=== PATIENT | female | born 1940 | race Caucasian/White ===

== ENCOUNTER 2017-09-15 07:04 | Inpatient (IN) | payer MEDICARE, OTHER ==
[~2017-09-15 07:04] MED LIST: ASPIRIN 81 MG TAB; HEPARIN 5,000 UNIT/0.5 ML VIAL
[2017-09-15] MEDS: NITROGLYCERIN 2% 1 GM OINT PKT TD (07:07)
[2017-09-15 07:28] LABS: ADD MAN DIFF? NO
[2017-09-15] MEDS ORDERED: NITROGLYCERIN (SL) 0.4 MG TAB SL ×2 (07:30→09:00)
[2017-09-15] MEDS: morphine 4 MG/ML VIAL IV (07:35)
[2017-09-15] MEDS: HEPARIN 1000 UNITS/ML 10 ML INJ IV (07:35)
[2017-09-15] MEDS: ONDANSETRON 4 MG INJ IV (07:35)
[2017-09-15 07:36] LABS: WHITE BLOOD COUNT 11.2 10^3/ul (4.8-10.8)
[2017-09-15 07:36] LABS: BASOPHILS % 0.4 % (0.0-2.0); EOSINOPHILS # 0.4 10^3/ul (0.0-0.5); EOSINOPHILS % 3.1 % (0.0-7.0); HEMATOCRIT 39.2 % (37.0-47.0); LYMPHOCYTES % 26.7 % (15.0-51.0); MEAN CORPUSCULAR HGB CONC 33.2 g/dl (32.0-37.0); MEAN CORPUSCULAR VOLUME 87.5 fl (82.0-101.0); MEAN PLATELET VOLUME 9.8 fl (7.4-10.4); MONOCYTE # 0.8 10^3/ul (0.3-0.9); MONOCYTES % 7.3 % (0.0-11.0); NEUTROPHIL # 6.9 10^3/ul (1.6-7.5); NEUTROPHILS % 61.9 % (39.0-77.0); PLATELET COUNT 301 10^3/UL (140-415); RED BLOOD COUNT 4.48 10^6/ul (4.20-5.40); RED CELL DISTRIBUTION WIDTH 13.2 % (11.5-14.5)
[2017-09-15] MEDS ORDERED: IOHEXOL 350MG/ML 50 ML BTL (07:45)
[2017-09-15] MEDS ORDERED: HEPARIN 1000 UNITS/ML 10 ML INJ (07:45)
[2017-09-15] MEDS ORDERED: IODIXANOL LOCM 100 ML BTL (07:45)
[2017-09-15] MEDS ORDERED: MIDAZOLAM 1 MG/ML 2 ML INJ (07:45)
[2017-09-15] MEDS ORDERED: VERAPAMIL 5 MG INJ ×2 (07:45→08:03)
[2017-09-15] MEDS ORDERED: FENTAnyl 50 MCG/ML VIAL (07:45)
[2017-09-15] MEDS ORDERED: SOD CHLORIDE 0.9% 500 ML (07:45)
[2017-09-15] MEDS ORDERED: LIDOCAINE 1% (MDV) 20 ML INJ (07:45)
[2017-09-15] MEDS ORDERED: NITROGLYCERIN (IC) 100 MCG/ML INJ (07:46)
[2017-09-15 07:47] LABS: ANION GAP 19 (8-16); BLOOD UREA NITROGEN 19 mg/dl (7-20); CARBON DIOXIDE 24 mmol/L (21-31); CHLORIDE 107 mmol/L (97-110); CREATININE 0.86 mg/dl (0.44-1.00); GLUCOSE 301 mg/dl (70-220); POTASSIUM 4.4 mmol/L (3.5-5.1)
[2017-09-15 07:57] LABS: CALCIUM 10.8 mg/dl (8.4-10.2); SODIUM 146 mmol/L (135-144)
[2017-09-15 07:59] LABS: TROPONIN-I 0.064 ng/ml (0.00-0.12)
[2017-09-15] MEDS ORDERED: TICAGRELOR 90 MG TABLET (08:01)
[2017-09-15] MEDS ORDERED: BIVALIRUDIN 250MG /NS 50 ML 100 ML IVPB (08:01)
[2017-09-15] MEDS: BIVALIRUDIN 250 MG in SOD CHLORIDE 0.9% 500 ML IV (08:30)
[2017-09-15] MEDS ORDERED: ACETAMINOPHEN 325 MG TAB PO ×2 (08:30→09:00)
[2017-09-15] MEDS ORDERED: FUROSEMIDE 40 MG INJ (08:37)
[2017-09-15] MEDS ORDERED: ALBUTEROL 0.083% (NEB) 2.5 MG/3 ML AMP NEB (09:00)
[2017-09-15] MEDS ORDERED: ONDANSETRON 4 MG INJ IV (09:00)
[2017-09-15] MEDS ORDERED: DOCUSATE SODIUM 100 MG CAP PO (09:00)
[2017-09-15] MEDS: morphine 2 MG INJ IV ×3 (09:35→11:39)
[2017-09-15] MEDS: SOD CHLORIDE 0.9% 1,000 ML IV (09:36)
[2017-09-15] MEDS ORDERED: HYDROCODONE/APAP (5/325) TAB PO (10:00)
[2017-09-15] MEDS ORDERED: DEXTROSE 50% 50 ML SYRINGE IV ×2 (10:00)
[2017-09-15] MEDS ORDERED: GLUCOSE GEL 15 GRAM TUBE BUCCAL (10:00)
[2017-09-15] MEDS ORDERED: GLUCAGON 1 MG INJ IM (10:00)
[2017-09-15] MEDS ORDERED: GLUCOSE GEL 15 GRAM TUBE PO ×2 (10:00)
[2017-09-15] MEDS ORDERED: morphine 2 MG INJ (10:01)
[2017-09-15 10:12] LABS: CHOL/HDL RATIO 7.2 RATIO; HDL CHOLESTEROL 34 mg/dl (33-92); LDL CHOLESTEROL,CALCULATED 154 mg/dl; TRIGLYCERIDES 285 mg/dl (0-149)
[2017-09-15 10:12] LABS: CHOLESTEROL 245 mg/dl (100-200)
[2017-09-15 10:15] LABS: HEMOGLOBIN A1C 8.7 % (0-5.9)
[2017-09-15] MEDS: TICAGRELOR 90 MG TABLET PO ×2 (11:30→21:08)
[2017-09-15] MEDS: ASPIRIN (EC) 81 MG TAB PO (11:31)
[2017-09-15] MEDS: BENAZEPRIL 10 MG TAB PO (11:38)
[2017-09-15] MEDS: FAMOTIDINE 20 MG TAB PO ×2 (11:39→21:07)
[2017-09-15] MEDS: INSULIN ASPART [NOVOLOG] 3 ML PEN SC ×4 (11:52→21:35)
[2017-09-15 12:14] LABS: CREATINE KINASE 3846 IU/L (23-200)
[2017-09-15 12:16] LABS: CK INDEX 2.7
[2017-09-15] MEDS: INSULIN GLARGINE [LANtus] 3 ML PEN SC (13:55)
[2017-09-15 14:43] LABS: ADD MAN DIFF? NO
[2017-09-15 14:48] LABS: BASOPHILS % 0.3 % (0.0-2.0); EOSINOPHILS % 0.1 % (0.0-7.0); HEMATOCRIT 38.2 % (37.0-47.0); HEMOGLOBIN 12.6 g/dl (12.0-16.0); LYMPHOCYTES # 1.6 10^3/ul (0.8-2.9); LYMPHOCYTES % 11.9 % (15.0-51.0); MEAN CORPUSCULAR HEMOGLOBIN 28.6 pg (29.0-33.0); MEAN CORPUSCULAR VOLUME 86.6 fl (82.0-101.0); MONOCYTE # 0.7 10^3/ul (0.3-0.9); MONOCYTES % 4.8 % (0.0-11.0); NEUTROPHIL # 11.3 10^3/ul (1.6-7.5); NEUTROPHILS % 82.4 % (39.0-77.0); PLATELET COUNT 317 10^3/UL (140-415); RED BLOOD COUNT 4.41 10^6/ul (4.20-5.40); RED CELL DISTRIBUTION WIDTH 13.2 % (11.5-14.5)
[2017-09-15 14:48] LABS: WHITE BLOOD COUNT 13.7 10^3/ul (4.8-10.8)
[2017-09-15 15:08] LABS: ALANINE AMINOTRANSFERASE 54 IU/L (13-69); ALBUMIN 4.1 g/dl (3.3-4.9); ALBUMIN/GLOBULIN RATIO 1.13; ALKALINE PHOSPHATASE 108 IU/L (42-121); ANION GAP 20 (8-16); ASPARTATE AMINO TRANSFERASE 309 IU/L (15-46); BILIRUBIN,INDIRECT 0.2 mg/dl (0-1.1); BILIRUBIN,TOTAL 0.2 mg/dl (0.2-1.3); BLOOD UREA NITROGEN 18 mg/dl (7-20); CALCIUM 9.8 mg/dl (8.4-10.2); CARBON DIOXIDE 23 mmol/L (21-31); CHLORIDE 104 mmol/L (97-110); CREATININE 0.81 mg/dl (0.44-1.00); GLUCOSE 307 mg/dl (70-220); POTASSIUM 4.6 mmol/L (3.5-5.1); SODIUM 142 mmol/L (135-144); TOTAL PROTEIN 7.7 g/dl (6.1-8.1)
[2017-09-15 15:42] LABS: CREATINE KINASE 2910 IU/L (23-200)
[2017-09-15 19:43] LABS: CREATINE KINASE 2121 IU/L (23-200)
[2017-09-15] MEDS: ATORVASTATIN 80 MG TAB PO (21:07)
[2017-09-16 05:12] LABS: ADD MAN DIFF? NO
[2017-09-16 05:14] LABS: WHITE BLOOD COUNT 10.8 10^3/ul (4.8-10.8)
[2017-09-16 05:14] LABS: BASOPHILS % 0.3 % (0.0-2.0); EOSINOPHILS # 0.1 10^3/ul (0.0-0.5); EOSINOPHILS % 1.1 % (0.0-7.0); HEMATOCRIT 35.4 % (37.0-47.0); HEMOGLOBIN 11.7 g/dl (12.0-16.0); LYMPHOCYTES # 2.4 10^3/ul (0.8-2.9); LYMPHOCYTES % 22.6 % (15.0-51.0); MEAN CORPUSCULAR HEMOGLOBIN 28.5 pg (29.0-33.0); MEAN CORPUSCULAR HGB CONC 33.1 g/dl (32.0-37.0); MEAN CORPUSCULAR VOLUME 86.3 fl (82.0-101.0); MEAN PLATELET VOLUME 9.8 fl (7.4-10.4); MONOCYTE # 0.7 10^3/ul (0.3-0.9); MONOCYTES % 6.7 % (0.0-11.0); NEUTROPHIL # 7.4 10^3/ul (1.6-7.5); NEUTROPHILS % 68.9 % (39.0-77.0); PLATELET COUNT 292 10^3/UL (140-415); RED CELL DISTRIBUTION WIDTH 13.2 % (11.5-14.5)
[2017-09-16 05:33] LABS: CREATINE KINASE 987 IU/L (23-200)
[2017-09-16 05:41] LABS: ALANINE AMINOTRANSFERASE 53 IU/L (13-69); ALBUMIN/GLOBULIN RATIO 1.29; ALKALINE PHOSPHATASE 78 IU/L (42-121); ANION GAP 12 (8-16); ASPARTATE AMINO TRANSFERASE 182 IU/L (15-46); BILIRUBIN,INDIRECT 0.2 mg/dl (0-1.1); BILIRUBIN,TOTAL 0.2 mg/dl (0.2-1.3); BLOOD UREA NITROGEN 18 mg/dl (7-20); CALCIUM 9.2 mg/dl (8.4-10.2); CARBON DIOXIDE 30 mmol/L (21-31); CHLORIDE 104 mmol/L (97-110); CHOL/HDL RATIO 7.7 RATIO; CHOLESTEROL 209 mg/dl (100-200); CREATININE 0.75 mg/dl (0.44-1.00); GLUCOSE 248 mg/dl (70-220); HDL CHOLESTEROL 27 mg/dl (33-92); LDL CHOLESTEROL,CALCULATED 140 mg/dl; MAGNESIUM 1.4 mg/dl (1.7-2.5); POTASSIUM 4.1 mmol/L (3.5-5.1); SODIUM 142 mmol/L (135-144); TOTAL PROTEIN 7.1 g/dl (6.1-8.1); TRIGLYCERIDES 210 mg/dl (0-149)
[2017-09-16 05:44] LABS: B-TYPE NATRIURETIC PEPTIDE 2760 PG/ML (0-450)
[2017-09-16 05:46] LABS: CK INDEX 4.5
[2017-09-16 05:52] LABS: FREE T4 (FREE THYROXINE) 1.13 ng/dl (0.78-2.44)
[2017-09-16 06:05] LABS: THYROID STIMULATING HORMONE 0.662 MIU/L (0.465-4.680)
[2017-09-16] MEDS: FAMOTIDINE 20 MG TAB PO ×2 (08:23→20:40)
[2017-09-16] MEDS: BENAZEPRIL 10 MG TAB PO (08:23)
[2017-09-16] MEDS: TICAGRELOR 90 MG TABLET PO ×2 (08:26→20:41)
[2017-09-16] MEDS: INSULIN ASPART [NOVOLOG] 3 ML PEN SC ×4 (08:27→20:42)
[2017-09-16] MEDS: ASPIRIN (EC) 81 MG TAB PO (08:37)
[2017-09-16] MEDS: MAGNESIUM OXIDE 400 MG TAB PO (09:41)
[2017-09-16] MEDS: INSULIN GLARGINE [LANtus] 3 ML PEN SC (09:45)
[2017-09-16] MEDS: ATORVASTATIN 80 MG TAB PO (20:40)
[2017-09-17 05:53] LABS: ALANINE AMINOTRANSFERASE 44 IU/L (13-69); ALBUMIN 3.7 g/dl (3.3-4.9); ALBUMIN/GLOBULIN RATIO 1.19; ALKALINE PHOSPHATASE 100 IU/L (42-121); ANION GAP 14 (8-16); ASPARTATE AMINO TRANSFERASE 92 IU/L (15-46); BILIRUBIN,INDIRECT 0.2 mg/dl (0-1.1); BILIRUBIN,TOTAL 0.2 mg/dl (0.2-1.3); BLOOD UREA NITROGEN 20 mg/dl (7-20); CALCIUM 8.7 mg/dl (8.4-10.2); CARBON DIOXIDE 27 mmol/L (21-31); CHLORIDE 104 mmol/L (97-110); CREATININE 0.85 mg/dl (0.44-1.00); GLUCOSE 286 mg/dl (70-220); MAGNESIUM 1.7 mg/dl (1.7-2.5); POTASSIUM 4.4 mmol/L (3.5-5.1); SODIUM 141 mmol/L (135-144); TOTAL PROTEIN 6.8 g/dl (6.1-8.1)
[2017-09-17] MEDS: BENAZEPRIL 10 MG TAB PO (08:53)
[2017-09-17] MEDS: FAMOTIDINE 20 MG TAB PO (08:53)
[2017-09-17] MEDS: ASPIRIN (EC) 81 MG TAB PO (08:53)
[2017-09-17] MEDS: TICAGRELOR 90 MG TABLET PO (08:54)
[2017-09-17] MEDS: INSULIN GLARGINE [LANtus] 3 ML PEN SC (08:59)
[2017-09-17] MEDS ORDERED: DIGOXIN 0.125 MG TAB PO (13:00)
== END 2017-09-17 10:50 | disposition home or self-care (01) | DRG 246 ==
LOC: E/R 07:04 → CCL 07:36 → SDS 07:36 → ICU 09:06 → CCL 07:43 → ICU 07:44
PROVIDERS: Internal Medicine
PROC: 027034Z Dilation of Coronary Artery, One Artery with Drug-eluting Intraluminal Device, Percutaneous Approach (ICD-10-PCS; principal; 2017-09-15 07:30)
PROC: 02C03ZZ Extirpation of Matter from Coronary Artery, One Artery, Percutaneous Approach (ICD-10-PCS; 2017-09-15 07:30)
PROC: 4A023N7 Measurement of Cardiac Sampling and Pressure, Left Heart, Percutaneous Approach (ICD-10-PCS; 2017-09-15 07:30)
PROC: B211YZZ Fluoroscopy of Multiple Coronary Arteries using Other Contrast (ICD-10-PCS; 2017-09-15 07:30)
DX: I21.19 ST elevation (STEMI) myocardial infarction involving other coronary artery of inferior wall (principal); I50.41 Acute combined systolic (congestive) and diastolic (congestive) heart failure; I25.10 Atherosclerotic heart disease of native coronary artery without angina pectoris; I11.0 Hypertensive heart disease with heart failure; E11.65 Type 2 diabetes mellitus with hyperglycemia; E66.01 Morbid (severe) obesity due to excess calories; E78.5 Hyperlipidemia, unspecified; G47.33 Obstructive sleep apnea (adult) (pediatric); F17.200 Nicotine dependence, unspecified, uncomplicated; Z68.37 Body mass index [BMI] 37.0-37.9, adult; Z79.4 Long term (current) use of insulin
CPT/HCPCS: 36415; 71045; 80048; 80053; 80061; 82550; 82553; 82962; 83036; 83735; 83880; 84145; 84439; 84443; 84484; 85025; 87081; 93005; 93306; 93458; 94660; 96374; 96375; 99291-25

== ENCOUNTER 2017-10-20 07:57 | Day surgery (SDC) | payer MEDICARE, OTHER ==
[~2017-10-20 07:57] MED LIST changes: -ASPIRIN 81 MG TAB; -HEPARIN 5,000 UNIT/0.5 ML VIAL; +SOD CHLORIDE 0.9% 1,000 ML IV
[2017-10-20 08:55] LABS: ADD MAN DIFF? NO
[2017-10-20 08:58] LABS: BASOPHILS % 0.4 % (0.0-2.0); EOSINOPHILS # 0.2 10^3/ul (0.0-0.5); EOSINOPHILS % 1.5 % (0.0-7.0); HEMATOCRIT 34.9 % (37.0-47.0); HEMOGLOBIN 11.3 g/dl (12.0-16.0); LYMPHOCYTES # 2.2 10^3/ul (0.8-2.9); LYMPHOCYTES % 20.8 % (15.0-51.0); MEAN CORPUSCULAR HEMOGLOBIN 28.5 pg (29.0-33.0); MEAN CORPUSCULAR HGB CONC 32.4 g/dl (32.0-37.0); MEAN CORPUSCULAR VOLUME 88.1 fl (82.0-101.0); MEAN PLATELET VOLUME 9.9 fl (7.4-10.4); MONOCYTE # 0.8 10^3/ul (0.3-0.9); MONOCYTES % 7.7 % (0.0-11.0); NEUTROPHIL # 7.3 10^3/ul (1.6-7.5); PLATELET COUNT 301 10^3/UL (140-415); RED BLOOD COUNT 3.96 10^6/ul (4.20-5.40); RED CELL DISTRIBUTION WIDTH 13.2 % (11.5-14.5)
[2017-10-20 08:58] LABS: WHITE BLOOD COUNT 10.6 10^3/ul (4.8-10.8)
[2017-10-20 09:21] LABS: ALANINE AMINOTRANSFERASE 25 IU/L (13-69); ALBUMIN 3.8 g/dl (3.3-4.9); ALBUMIN/GLOBULIN RATIO 1.31; ALKALINE PHOSPHATASE 81 IU/L (42-121); ANION GAP 15 (8-16); ASPARTATE AMINO TRANSFERASE 18 IU/L (15-46); BILIRUBIN,INDIRECT 0.1 mg/dl (0-1.1); BILIRUBIN,TOTAL 0.1 mg/dl (0.2-1.3); CARBON DIOXIDE 29 mmol/L (21-31); CHLORIDE 106 mmol/L (97-110); CHOLESTEROL 122 mg/dl (100-200); CREATINE KINASE 134 IU/L (23-200); GLUCOSE 191 mg/dl (70-220); HDL CHOLESTEROL 40 mg/dl (33-92); LDL CHOLESTEROL,CALCULATED 51 mg/dl; TOTAL PROTEIN 6.7 g/dl (6.1-8.1); TRIGLYCERIDES 154 mg/dl (0-149)
[2017-10-20 09:22] LABS: BLOOD UREA NITROGEN 12 mg/dl (7-20); CALCIUM 9.2 mg/dl (8.4-10.2); CREATININE 0.78 mg/dl (0.44-1.00); POTASSIUM 4.6 mmol/L (3.5-5.1)
[2017-10-20 09:25] LABS: SODIUM 145 mmol/L (135-144)
[2017-10-20 09:30] LABS: INR 0.98; PARTIAL THROMBOPLASTIN TIME 30.4 Sec (25.0-35.0); PROTIME 13.1 Sec (11.9-14.9)
[2017-10-20 09:31] LABS: TROPONIN-I < 0.012 ng/ml (0.00-0.12)
[2017-10-20] MEDS ORDERED: FENTAnyl 50 MCG/ML VIAL (10:26)
[2017-10-20] MEDS ORDERED: MIDAZOLAM 1 MG/ML 2 ML INJ (10:26)
[2017-10-20] MEDS ORDERED: IODIXANOL LOCM 100 ML BTL (10:26)
[2017-10-20] MEDS ORDERED: LIDOCAINE 1% (MDV) 20 ML INJ (10:26)
[2017-10-20] MEDS ORDERED: NITROGLYCERIN (IC) 100 MCG/ML INJ ×2 (10:33→10:47)
[2017-10-20] MEDS ORDERED: VERAPAMIL 5 MG INJ ×2 (10:33→10:47)
[2017-10-20] MEDS ORDERED: HEPARIN 1000 UNITS/ML 10 ML INJ (10:47)
[2017-10-20] MEDS ORDERED: ASPIRIN 81 MG TAB (10:49)
[2017-10-20] MEDS ORDERED: TICAGRELOR 90 MG TABLET (10:49)
[2017-10-20] MEDS ORDERED: ACETAMINOPHEN 325 MG TAB PO (12:00)
[2017-10-20] MEDS ORDERED: morphine 2 MG INJ IV (12:00)
[2017-10-20] MEDS: SOD CHLORIDE 0.9% 1,000 ML IV (12:11)
== END 2017-10-20 18:15 | disposition home or self-care (01) ==
LOC: SDS 07:57 → ICU 12:00 → SDS 18:15
DX: I25.10 Atherosclerotic heart disease of native coronary artery without angina pectoris (principal); I10 Essential (primary) hypertension; E78.5 Hyperlipidemia, unspecified; F17.200 Nicotine dependence, unspecified, uncomplicated; I50.9 Heart failure, unspecified
CPT/HCPCS: 80053; 80061; 82550; 82553; 82962; 84484; 85025; 85610; 85730; 93458